=== PATIENT | male | born 1990 | race Caucasian/White ===

== ENCOUNTER → 2021-02-04 11:20 | Outpatient (CLI) | payer BC, SELFPAY | PROVIDERS: Visit Provider Nurse Practitioner | DX: U07.1 COVID-19 (principal) | CPT/HCPCS: C9803; U0003; U0005 ==

== ENCOUNTER → 2021-02-09 09:51 | Outpatient (CLI) | payer BC, SELFPAY | PROVIDERS: Visit Provider Nurse Practitioner | DX: U07.1 COVID-19 (principal) | CPT/HCPCS: C9803; U0003; U0005 ==

== ENCOUNTER 2023-06-11 09:28 | Emergency (ER) | payer SELFPAY ==
[2023-06-11 09:30] VITALS: BP 134/89; PULSE 91; RESP 18; TEMP 36.6; O2SAT 97; BMI 27.1
--- NOTE | 2023-06-11 09:35 | PC.NURSE ---
DR DELCID AT BEDSIDE
--- NOTE | 2023-06-11 09:38 | XR_ITS ---
PROCEDURE INFORMATION: Exam: XR Right Knee Exam date and time: 06/11/2023 10:12 AM Age: 32 years old Clinical indication: Pain; Knee; Right TECHNIQUE: Imaging protocol: Radiologic exam of the right knee. Views: 1 view COMPARISON: No relevant prior studies available. FINDINGS: Bones/joints: A single lateral view of the right knee is submitted. There is normal anatomic alignment of the right knee in the lateral view. No visible fracture. No visible right knee effusion. Soft tissues: No radiopaque foreign body or gas in the soft tissues. IMPRESSION: Normal right knee (one-view lateral)
--- NOTE | 2023-06-11 09:41 | ED_ITS ---
Discharge Plan Disposition Patient Disposition: Home, Self-Care Condition: Fair Prescriptions Prescriptions: New ibuprofen [IBU] 800 mg tablet 800 mg PO Q6H PRN (Reason: pain) 3 Days Qty: 12 0RF lidocaine 5 % adhesive patch,medicated 1 patch topical Q24H PRN (Reason: pain) 5 Days Qty: 15 0RF Rx Instructions: leave on most painful area for up to 12 hrs methocarbamol 500 mg tablet 500 mg PO TID PRN (Reason: pain) 3 Days Qty: 15 0RF acetaminophen [Tylenol] 325 mg capsule 1,000 mg PO Q6H PRN (Reason: fever or pain) 4 Days Qty: 16 0RF Referrals Follow up/Referrals: Biju Lancaster DO [Staff Physician] - See instructions (See in Clinic on tuesday. Possible Meniscus injury) Provider,Referral, [Primary Care Provider] - See instructions Activity Restrictions/Add. Instructions Additional Instructions/Restrictions: You have been evaluated in the ED for your complaints. You may follow-up with your PCP in the next 3 to 5 days. Please return to ED for any new or worsening symptoms. I do recommend rest, icing, compression and elevating your extremity to assist with symptoms. Please take ibuprofen and Tylenol as well as Robaxin and use lidocaine patches as needed for pain. I provided you with crutches to assist with ambulation. Please call orthopedic surgery's office on Tuesday for appointment to be seen on Tuesday. You will likely need an MRI on an outpatient basis to rule out meniscus injury. Clinical Impressions Clinical Impression: Acute pain of right knee Stand Alone Forms Stand Alone Forms: Work/School Release Discharge ED Provider: Kilo Bravo Adult [facility] General Chief complaint: Extremity Injury, Lower Stated complaint: Right knee won't bend, pain with movement Time Seen by Provider: 06/11/23 09:34 Mode of Arrival: Wheelchair Source of Information: Patient Limitations: No Limitations Description of Symptoms (Recalled from ER Triage Doc. by RN): r knee injury History of Present Illness HPI narrative: 32-year-old male with with no pertinent past medical history presents today for evaluation regarding right knee pain this morning while playing with his daughter in the floor. He did not fall or hit his knee but states that for plan with her on the floor he felt a catching sensation on the right side of his knee. Has been unable to ambulate or extend his knee secondary to pain. Has not any fevers or chills. Has not taken any pain medications to assist. No further complaints Related Data Previous Rx's Medication Instructions Recorded acetaminophen 325 mg capsule 1,000 mg (3.0769 x 325 mg) PO Q6H 06/11/23 (Tylenol) PRN fever or pain 4 days #16 caps ibuprofen 800 mg tablet (IBU) 800 mg PO Q6H PRN pain 3 days #12 06/11/23 tabs lidocaine 5 % topical patch 1 patch topical Q24H PRN pain 5 06/11/23 days #15 ea methocarbamol 500 mg tablet 500 mg PO TID PRN pain 3 days #15 06/11/23 tabs Allergies Allergy/AdvReac Type Severity Reaction Status Date / Time No Known Allergies Allergy Verified 06/11/23 09:39 [facility] Disclaimer: The information contained in this section may have been updated after the patient was seen, as this information can be updated by other users. Social History Smoking Status: Never smoker alcohol intake: never current occupational status: employed Travel in the last 8 weeks: None ROS Obtained: Yes All systems reviewed & no additional complaints except as documented Physical Exam General General appearance: alert and in no apparent distress Head Head exam: atraumatic and normocephalic Eye Eye exam: Present normal appearance, PERRL and EOMI ENT ENT exam: Present normal oropharynx and mucous membranes moist Neck Neck exam: Present full ROM; Absent meningismus Respiratory Respiratory exam: Absent respiratory distress, wheezes, stridor or accessory muscle use Cardiovascular Cardiovascular exam: Present normal rhythm Abdominal Exam Abdominal exam: Present soft; Absent distention, tenderness, guarding, rebound or rigidity Extremities Exam Extremities exam: Present tenderness (Tenderness palpation over the lateral aspect of the right knee without external signs of trauma. Unable to fully extend the knee secondary to pain.); Absent full ROM Neurological Exam Neurological exam: Present alert, oriented X3 and CN II-XII intact; Absent motor sensory deficit Psychiatric Psychiatric exam: Present normal affect and normal mood Skin Skin exam: Present warm and dry Medical Decision Making Medical Records Medical records reviewed: Yes I reviewed the patient's medical records. Kvng Inquiry Pt receiving controlled substance: No Kvng was queried for this patient: No Vital Signs: 06/11/23 09:30 06/11/23 10:01 06/11/23 10:30 Temperature 97.8 F Temperature Source Oral Pulse Rate 86 80 Pulse Rate [Right] 91 H Respiratory Rate 18 18 18 Blood Pressure 114/81 127/82 Blood Pressure [Right Arm] 134/89 Blood Pressure Mean 94 90 Blood Pressure Mean [Right Arm] 104 Blood Pressure Source Blood Pressure Position 02 Sat by Pulse Oximetry 97 96 98 Oxygen Delivery Method Room Air 06/11/23 11:01 06/11/23 12:00 06/11/23 12:56 Temperature 98.2 F Temperature Source Oral Pulse Rate 86 96 H 88 Pulse Rate [Right] Respiratory Rate 18 18 18 Blood Pressure 115/81 125/86 138/89 Blood Pressure [Right Arm] Blood Pressure Mean 89 97 Blood Pressure Mean [Right Arm] Blood Pressure Source Automatic Cuff Blood Pressure Position Sitting 02 Sat by Pulse Oximetry 96 98 Oxygen Delivery Method Room Air Orders (Tests/Meds): ED MEDICATIONS Discontinued Medications Generic Name Dose Route Start Last Admin Trade Name Freq PRN Reason Stop Dose Admin Acetaminophen 1,000 mg 06/11/23 09:38 06/11/23 09:55 Acetaminophen 500mg Tab PO 06/11/23 09:39 1,000 mg ONCE ONE Administration Ibuprofen 800 mg 06/11/23 09:40 06/11/23 10:06 Ibuprofen 800 Mg Tablet PO 06/11/23 09:41 Not Given ONCE ONE Ibuprofen 800 mg 06/11/23 09:44 06/11/23 09:55 Ibuprofen 400 Mg Tablet PO 06/11/23 09:45 800 mg ONCE ONE Administration Lidocaine 1 each 06/11/23 09:45 06/11/23 09:55 Lidocaine 5% Transdermal Patch TP 07/11/23 09:44 1 each Q24H YU Administration Methocarbamol 750 mg 06/11/23 09:40 06/11/23 09:55 Methocarbamol 500mg Tablet PO 06/11/23 09:41 750 mg ONCE ONE Administration Oxycodone HCl 5 mg 06/11/23 11:19 06/11/23 11:20 Oxycodone 5mg Immediate Release Tablet PO 06/11/23 11:20 5 mg ONCE ONE Administration ORDERS Category Date Time Status XR knee RT 2V Stat Exams 06/11/23 09:38 Completed Medical Decision Narrative: 32-year-old male with with no pertinent past medical history presents today for evaluation regarding right knee pain this morning while playing with his daughter in the floor. He did not fall or hit his knee but states that for plan with her on the floor he felt a catching sensation on the right side of his knee. On assessment he was medically stable in no acute distress. Tenderness palpation over the lateral aspect of the right knee without external signs of trauma. Unable to fully extend the knee secondary to pain. The joint was not hot or swollen. Differential diagnoses include but limited to knee sprain, fracture, ligamentous injury, meniscal injury, others. I did order for three-view x-ray of the right knee and did not show any acute bony abnormalities. I did reassess patient and after pain medications he stated that he was able to extend his knee a little more. I did speak with Dr. Donnie rhodes orthopedics and discussed management and he has noted the patient to be seen on an outpatient basis and will likely need MRI to rule out meniscal injury. This plan was discussed with patient he verbalized understanding and agreement. I did provide him with crutches and follow-up information. He verbalized understanding. Provided with return ED precautions. Subsequently discharged home. Critical Care Critical Care Time Critical Care Time: No
[2023-06-11] MEDS: LIDOCAINE 5% TRANSDERMAL PATCH 1 EACH TP (09:55)
[2023-06-11] MEDS: IBUPROFEN 400 MG TABLET 800 MG PO (09:55)
[2023-06-11] MEDS: METHOCARBAMOL 500MG TABLET 750 MG PO (09:55)
[2023-06-11] MEDS: ACETAMINOPHEN 500MG TAB 1000 MG PO (09:55)
[2023-06-11 10:01] VITALS: BP 114/81; PULSE 86; RESP 18; O2SAT 96
--- NOTE | 2023-06-11 10:19 | PC.NURSE ---
PT TO XR
--- NOTE | 2023-06-11 10:26 | PC.NURSE ---
Pt returned from RAD
[2023-06-11 10:30] VITALS: BP 127/82; PULSE 80; RESP 18; O2SAT 98
[2023-06-11 11:01] VITALS: BP 115/81; PULSE 86; RESP 18; O2SAT 96
--- NOTE | 2023-06-11 11:17 | PC.NURSE ---
Rounded on pt. Pt advised medicine helped a little but not enough to straighten out my leg. Dr. Bravo notified.
[2023-06-11] MEDS: OXYCODONE 5MG IMMEDIATE RELEASE TABLET 5 MG PO (11:20)
--- NOTE | 2023-06-11 11:29 | PC.NURSE ---
unhooked pt from bp cuff , pt hopped to restroom. Assisted pt from bathroom to room
[2023-06-11 12:00] VITALS: BP 125/86; PULSE 96; RESP 18; O2SAT 98
--- NOTE | 2023-06-11 12:45 | PC.NURSE ---
Dr. Bravo spoke with Radha. They will see him on tuesday.
[2023-06-11 12:56] VITALS: BP 138/89; PULSE 88; RESP 18; TEMP 36.8; O2SAT 98
== END 2023-06-11 13:00 | disposition home or self-care (01) ==
PROVIDERS: Emergency Provider Emergency Medicine
DX: M25.561 Pain in right knee (principal)
CPT/HCPCS: 73560; 99283

== ENCOUNTER 2024-09-22 09:28 | Outpatient (CLI) | payer BC, SELFPAY ==
--- OUTSIDE RECORDS SUMMARY | 2024-09-22 09:35 | XMS_ITS | Clinical Summary ---
Author Organization [facility] Address [address] [address] Phone Care Team Providers Care Nutritional Chemist Name Role Phone Unavailable Primary Care Provider Unavailabl e Allergies No known active allergies Medications methylPREDNISolo ne (MEDROL DOSPACK) 4 mg Oral Tablets, Dose PackIndications: Right knee pain, unspecified chronicity,Knee strain, right, initial encounter follow package directions 21 Tablet Active Social History Tobacco Use Types Packs/Day Years Used Date Smoking Tobacco: Never Smokeless Tobacco: Current Snuff Sex and Gender Information Value Date Recorded Sex Assigned at Not on file Legal Sex Male 10:38 AM EDT Gender Identity Not on file Sexual Orientation Not on file Obstetrics History Last Filed Vital Signs Vital Sign Reading Time Taken Comments Blood Pressure - - Pulse - - Temperature - - Respiratory Rate - - Oxygen Saturation - - Inhaled Oxygen Concentration - - Weight 88.5 kg (195 lb) 06/16/2023 2:43 PM EDT Height 185.4 cm (6' 1 ) 06/16/2023 2:43 PM EDT Body Mass Index 25.73 06/16/2023 2:43 PM EDT Plan of Treatment Health Maintenance Due Date Last Done Comments Annual Wellness Exam 10/30/1991 DTaP/TDaP/Td (1 - Tdap) 10/30/2007 COVID-19 Vaccine (2023-2 5 season) 2023 Influenza Vaccine (#1) 2024 Hepatitis B Vaccine Completed 02/13/2013, 07/20/2012, 09/28/1999 Meningococcal B Vaccine Aged Out No l onger eligible based on patient's age to complete this topic Pneumococcal Vaccine 0-49 Aged Out No longer eligible based on patient's age to complete this topic Insurance [facility]
[2024-09-22 09:43] LABS: Hematocrit 46.8 % (42.0-52.0); Hemoglobin 16.1 g/dL (14.1-18.0); Immature Granulocytes % 0.2 %; Mean Corpuscular HGB Conc 34.4 g/dL (31.8-35.4); Mean Corpuscular Hemoglobin 30.4 pg (27.0-31.2); Mean Corpuscular Volume 88.3 fl (80-94); Nucleated Red Blood Cells % 0 %; Platelet Count 254 K/mm3 (142-424); Red Blood Count 5.30 M/mm3 (4.60-6.20); Red Cell Distribution Width-SD 39.5 fL; White Blood Count 6.2 K/mm3 (4.8-10.8)
[2024-09-22 10:23] LABS: Albumin Level 5.0 g/dl (3.5-5.0); Chloride 105 mmol/L (98-107); Sodium 140 mmol/L (136-145)
[2024-09-22 10:24] LABS: Potassium 4.7 mmoL/L (3.5-5.1)
[2024-09-22 10:26] LABS: Alanine Aminotransferase 24 U/L (12-78); Albumin/Globulin Ratio 2.0 (1.1-1.8); Alkaline Phosphatase 54 U/L (38-126); Anion Gap 9.7 mEq/L (5-15); Aspartate Amino Transferase 28 U/L (17-59); Bilirubin,Total 0.6 mg/dl (0.2-1.3); Blood Urea Nitrogen 11 mg/dl (9-20); Carbon Dioxide 30 mmol/L (22.0-30.0); Cholesterol 162 mg/dl (140-200); Creatinine,Serum 0.90 mg/dl (0.66-1.25); Estimated Glomerular Filt Rate 96 ml/min (>60); GFR (African American) 116 ML/MIN (>60); Globulin 2.5 g/dL (1.3-3.2); Total Protein,Serum 7.5 g/dl (6.3-8.2); Triglycerides 100 mg/dl (30-150)
[2024-09-22 10:27] LABS: Calcium 9.8 mg/dl (8.4-10.2); Glucose 101 mg/dl (74-100); HDL Cholesterol 59 mg/dl (40-60)
[2024-09-22 10:57] LABS: Thyroid Stimulating Hormone 1.48 uIU/mL (0.465-4.68)
== END 2024-09-22 23:59 | disposition home or self-care (01) ==
LOC: LAB 09:31
PROVIDERS: PCP Nurse Practitioner Family; Visit Provider Nurse Practitioner Family
DX: Z00.00 Encounter for general adult medical examination without abnormal findings (principal); R79.89 Other specified abnormal findings of blood chemistry; R53.83 Other fatigue
CPT/HCPCS: 36415; 80053; 80061; 84443; 85025